=== PATIENT | male | born 1965 | race Caucasian/White ===

== ENCOUNTER 2021-07-26 08:32 | Emergency (ER) | payer BC ==
[~2021-07-26 08:32] MED LIST: ALDACTONE 25MG25 MG PO; ALDACTONE25 MG PO; AMIODARONE HCL400 MG PO; ASPIR 8181 MG PO; CORDARONE 200M200 MG PO; ELIQUIS5 MG PO; K-DUR TAB 20 M20 MEQ PO; LASIX40 MG PO; LIPITOR40 MG PO; LOPRESSOR50 MG PO; ZESTRIL5 MG PO
== END 2021-07-26 11:48 | disposition home or self-care (01) ==
LOC: ER1 08:32
DX: U07.1 COVID-19 (principal); I48.91 Unspecified atrial fibrillation
CPT/HCPCS: 0240U; 71045; 99283